=== PATIENT | male | born 1985 | race Caucasian/White ===

== ENCOUNTER 2017-01-05 06:04 | Emergency (ER) | payer SELFPAY ==
[2017-01-05 08:14] LABS: Anion Gap 20 mmol/L; Blood Urea Nitrogen 7 mg/dL (9-20); Calcium 9.2 mg/dL (8.4-10.2); Carbon Dioxide 24 mmol/L (22-30); Chloride 100.8 mmol/L (98-107); Glucose 152 mg/dL (75-100); Potassium 3.8 mmol/L (3.6-5.0); Sodium 141 mmol/L (137-145)
[2017-01-05 08:18] LABS: Basophils % (Auto) 0.4 % (0.0-1.8); Eosinophils % (Auto) 0.8 % (0.0-4.3); Hematocrit 43.8 % (35.5-45.6); Hemoglobin 14.3 gm/dl (11.8-15.2); Mean Corpuscular HGB Conc 33 % (32-34); Mean Corpuscular Hemoglobin 28 pg (28-32); Mean Corpuscular Volume 85 fl (84-94); Platelet Count 266 K/mm3 (140-440); Red Blood Count 5.15 M/mm3 (3.65-5.03); Red Cell Distribution Width 13.5 % (13.2-15.2); White Blood Count 15.9 K/mm3 (4.5-11.0)
[2017-01-05 08:30] LABS: INR 1.04 (0.87-1.13)
[2017-01-05 08:31] LABS: Partial Thromboplastin Time 39.2 Sec. (24.2-36.6)
--- NOTE | 2017-01-05 09:15 | XRay Report ---
CHEST 2 VIEWS INDICATION: Chest pain. COMPARISON: None similar at this institution. FINDINGS: PA and lateral chest radiographs demonstrate normal cardiomediastinal silhouette. Clear lungs. Intact bones. CONCLUSION: No acute disease in the chest. Thank you for the opportunity to participate in this patient's care.
[2017-01-05] MEDS ORDERED: BICILLIN L-A IM ONE ×2 (09:24)
[2017-01-05] MEDS ORDERED: TORADOL IM ONE (09:24)
--- NOTE | 2017-01-05 09:33 | Emergency Department Report ---
ED General Adult HPI - General Chief complaint: Chest Pain Stated complaint: SORE THROAT/FEVER Time Seen by Provider: 01/05/17 09:09 Source: patient Mode of arrival: Ambulatory Limitations: No Limitations - History of Present Illness Initial comments: PT c/o sore throat since Tuesday. + fever, + headache, + myalgia, PT had one episode of diarrhea. pt also has had intermittent cp x 6 months. PT does report having heartburn symptoms that he has been controlling with diet. PT states he was at a BBQ on Tuesday and he was around a lot of kids. PT unsure if any of them were sick. MD Complaint: sore throat -: Gradual, days(s) Severity scale (0 -10): 3 Quality: burning (throat ), aching (body ) Consistency: constant Improves with: none Worsens with: eating, other (swallowing ) Associated Symptoms: chest pain (intermittent x 6 months ), headaches, loss of appetite (due to pain of throat ), malaise. denies: nausea/vomiting, rash, shortness of breath Treatments Prior to Arrival: other (tylenol cold and sinus @ 0300 ) - Related Data Previous Rx's Medication Instructions Recorded Last Taken Type Lansoprazole [Prevacid] 15 mg PO QDAY #28 cap 01/05/17 Unknown Rx traMADol [Ultram] 50 mg PO Q6HR PRN #12 tablet 01/05/17 Unknown Rx Allergies Allergy/AdvReac Type Severity Reaction Status Date / Time No Known Allergies Allergy Verified 01/05/17 06:43 ED Review of Systems ROS: Stated complaint: SORE THROAT/FEVER Other details as noted in HPI Comment: All other systems reviewed and negative Constitutional: chills, fever, malaise ENT: throat pain Respiratory: denies: cough, shortness of breath, SOB with exertion Cardiovascular: chest pain. denies: edema Gastrointestinal: denies: abdominal pain, nausea, vomiting Musculoskeletal: myalgia Neurological: headache, weakness (generalized ) ED Past Medical Hx - Past Medical History Previous Medical History?: No - Surgical History Past Surgical History?: No - Social History Smoking Status: Never Smoker Substance Use Type: None - Medications Home Medications: Home Medications Medication Instructions Recorded Confirmed Last Taken Type Lansoprazole [Prevacid] 15 mg PO QDAY #28 cap 01/05/17 Unknown Rx traMADol [Ultram] 50 mg PO Q6HR PRN #12 tablet 01/05/17 Unknown Rx ED Physical Exam - General Limitations: No Limitations General appearance: alert, in no apparent distress - Head Head exam: Present: atraumatic, normocephalic, normal inspection - Eye Eye exam: Present: normal appearance, PERRL, EOMI. Absent: conjunctival injection - ENT ENT exam: Present: mucous membranes moist, TM's normal bilaterally, normal external ear exam - Expanded ENT Exam Expanded Mouth exam: Absent: drooling, trismus, muffled voice Throat exam: Positive: tonsillar erythema, tonsillomegaly. Negative: tonsillar exudate - Neck Neck exam: Present: normal inspection, tenderness, full ROM, lymphadenopathy. Absent: meningismus - Respiratory Respiratory exam: Present: normal lung sounds bilaterally. Absent: respiratory distress, chest wall tenderness - Cardiovascular Cardiovascular Exam: Present: regular rate, normal rhythm, normal heart sounds - GI/Abdominal GI/Abdominal exam: Present: soft, normal bowel sounds. Absent: tenderness, guarding, rebound - Extremities Exam Extremities exam: Present: normal inspection, full ROM - Back Exam Back exam: Present: normal inspection, full ROM. Absent: tenderness, CVA tenderness (R) - Neurological Exam Neurological exam: Present: alert, oriented X3 - Psychiatric Psychiatric exam: Present: normal affect, normal mood - Skin Skin exam: Present: warm, dry, intact, normal color ED Course Vital Signs 01/05/17 01/05/17 01/05/17 06:44 09:38 10:52 Temperature 98.8 F 98.2 F Pulse Rate 80 75 Respiratory 18 18 18 Rate Blood Pressure 150/85 135/84 [Right] O2 Sat by Pulse 100 100 Oximetry - Reevaluation(s) Reevaluation #1: 01/05/17 10:29 PT states he is feeling better. PT aware of lab results. PT able to drink without difficulty. PT aware he will need to follow up with PCP. PT has no questions at this time. - Pulse Oximetry Interpretation Digit-Finger Initial Pulse Oximetry Readin Actions Taken: none ED Medical Decision Making - Lab Data Result diagrams: 01/05/17 07:17 01/05/17 07:17 - EKG Data -: EKG Interpreted by [facility] EKG shows normal: sinus rhythm Rate: normal (74) - Radiology Data Radiology results: report reviewed CXR- Nap - Differential Diagnosis pna, strep pharyngitis, viral illness, gerd Critical Care Time: No Critical care attestation.: If time is entered above; I have spent that time in minutes in the direct care of this critically ill patient, excluding procedure time. ED Disposition Clinical Impression: Strep pharyngitis, Non-cardiac chest pain Leukocytosis Qualifiers: Leukocytosis type: unspecified Qualified Code(s): D72.829 - Elevated white blood cell count, unspecified Disposition: DISCHARGED TO HOME OR SELFCARE Is pt being admited?: No Does the pt Need Aspirin: No Condition: Stable Instructions: Chest Pain (ED), Strep Throat (ED), Fever in Adults (ED), Esophageal Spasm (ED), Noncardiac Chest Pain (ED) Additional Instructions: Recheck BP on follow up Increase fluids Strep throat is contagious - make sure all of your cups/ utensils are washed Change your toothbrush No driving or ETOH after taking Ultram Take OTC Motrin (600mg) three times a day as needed for fever and OTC Tylenol (650mg) four times a day as needed for fever Prescriptions: Lansoprazole [Prevacid] 15 mg PO QDAY #28 cap traMADol [Ultram] 50 mg PO Q6HR PRN #12 tablet PRN Reason: Pain Referrals: PRIMARY CARE, [Primary Care Provider] - 3-5 Days CORBY LIRA MD, PHD [Staff Physician] - 3-5 Days [facility] [Outside] - 3-5 Days [facility] [Outside] - 3-5 Days Time of Disposition: 10:37
[2017-01-05 10:54] VITALS: BP 135/84
== END 2017-01-05 10:54 | disposition home or self-care (01) ==
LOC: ED 06:04
DX: J02.0 Streptococcal pharyngitis (principal); R07.89 Other chest pain; D72.829 Elevated white blood cell count, unspecified
CPT/HCPCS: 36415; 71020; 80048; 84484; 85025; 85610; 85730; 87430; 93005; 93010; 96372; 99285; J0561; J1885; J2930